=== PATIENT | male | born 1995 | race Caucasian/White ===

== ENCOUNTER 2019-03-14 16:32 | Emergency (ER) | payer MEDICAID ==
[~2019-03-14] VITALS: Ht 182.9 cm; Wt 163.3 kg
[2019-03-14 16:45] VITALS: Ht 182.9 cm; Wt 163.3 kg
[2019-03-14 19:16] VITALS: BP 119/77
== END 2019-03-14 19:17 | disposition home or self-care (01) ==
LOC: ED 16:32
DX: R55 Syncope and collapse (principal); R42 Dizziness and giddiness; Z88.2 Allergy status to sulfonamides
CPT/HCPCS: 82962